=== PATIENT | female | born 1935 | race Caucasian/White ===

== ENCOUNTER 2023-09-13 18:35 | Emergency (ER) | payer MEDICARE ==
[~2023-09-13] VITALS: Ht 157.5 cm; Wt 514.8 kg
[2023-09-13 19:09] LABS: BASOPHILS % 0.3 % (0.0-1.0); EOSINOPHILS % 0.1 % (0.0-6.0); HEMATOCRIT 37.8 % (34.2-44.1); HEMOGLOBIN 12.7 g/dL (12.0-16.0); LYMPHOCYTES # (AUTO) 0.9 (1.0-3.2); LYMPHOCYTES % 9.5 % (18.0-39.1); MEAN CORPUSCULAR HGB CONC 33.6 g/dL (31-35); MEAN CORPUSCULAR VOLUME 89.2 fL (81-99); MONOCYTES # (AUTO) 0.7 (0.2-0.8); MONOCYTES % 7.4 % (4.4-11.3); NEUTROPHILS # (AUTO) 7.4 (2.1-6.9); NEUTROPHILS % 82.3 % (38.7-80.0); PLATELET COUNT 335 x10e3/uL (140-360); RED BLOOD COUNT 4.24 x10e6/uL (3.6-5.1); RED CELL DISTRIBUTION WIDTH 13.2 % (11.7-14.4); WHITE BLOOD COUNT 9.02 x10e3/uL (4.8-10.8)
[2023-09-13 19:22] LABS: ALBUMIN 3.2 g/dL (3.5-5.0); ALBUMIN/GLOBULIN RATIO 0.7 (0.8-2.0); ANION GAP 17.3 mmol/L (8-16); CALCIUM 9.3 mg/dL (8.4-10.2); CREATININE, SERUM 0.9 mg/dL (0.57-1.11); POTASSIUM 4.3 mmol/L (3.5-5.1)
[2023-09-13 21:01] VITALS: BP 162/81; PULSE 93; RESP 16; TEMP 98.8; O2SAT 100
== END 2023-09-13 20:55 | disposition home or self-care (01) ==
LOC: ER 18:43
DX: R05.9 Cough, unspecified (principal); R09.81 Nasal congestion; Z20.822 Contact with and (suspected) exposure to COVID-19; R94.31 Abnormal electrocardiogram [ECG] [EKG]
CPT/HCPCS: 36415; 71045; 80053; 83880; 84484; 85025; 87400; 93005; 99284; U0002

== ENCOUNTER 2024-11-20 18:18 | Emergency (ER) | payer MEDICARE ==
[~2024-11-20] VITALS: Ht 157.5 cm; Wt 514.8 kg
[2024-11-20 18:32] VITALS: TEMP 98.5
[2024-11-20] MEDS: SODIUM CHLORIDE 0.9% 1000ML 1,000 ML IV STA (18:48)
[2024-11-20 19:08] LABS: BASOPHILS % 0.3 % (0.0-1.0); HEMATOCRIT 38.2 % (34.2-44.1); HEMOGLOBIN 12.9 g/dL (12.0-16.0); LYMPHOCYTES # (AUTO) 0.7 (1.0-3.2); LYMPHOCYTES % 7.6 % (18.0-39.1); MEAN CORPUSCULAR HGB CONC 33.8 g/dL (31-35); MEAN CORPUSCULAR VOLUME 91.8 fL (81-99); MONOCYTES # (AUTO) 0.3 (0.2-0.8); MONOCYTES % 3.5 % (4.4-11.3); NEUTROPHILS # (AUTO) 8.1 (2.1-6.9); NEUTROPHILS % 88.1 % (38.7-80.0); PLATELET COUNT 228 x10e3/uL (140-360); RED BLOOD COUNT 4.16 x10e6/uL (3.6-5.1); RED CELL DISTRIBUTION WIDTH 12.8 % (11.7-14.4); WHITE BLOOD COUNT 9.19 x10e3/uL (4.8-10.8)
[2024-11-20 19:34] LABS: ALBUMIN 3.8 g/dL (3.5-5.0); ALBUMIN/GLOBULIN RATIO 1.1 (0.8-2.0); ANION GAP 18.3 mmol/L (8-16); BILIRUBIN,TOTAL 0.9 mg/dL (0.2-1.2); CALCIUM 9.1 mg/dL (8.4-10.2); CREATININE, SERUM 0.94 mg/dL (0.57-1.11); POTASSIUM 4.3 mmol/L (3.5-5.1); TOTAL PROTEIN 7.2 g/dL (6.5-8.1)
[2024-11-20 19:40] LABS: TROPONIN I 0.013 ng/mL (0-0.300)
[2024-11-20 19:56] LABS: CLARITY,URINE CLEAR (CLEAR); COLOR,URINE YELLOW (YELLOW); LEUKOCYTE ESTERASE ,URINE NEGATIVE (NEGATIVE); NITRITE,URINE NEGATIVE (NEGATIVE); PH,URINE 8 (5 - 7); PROTEIN,URINE DIPSTICK 2+ (NEGATIVE)
[2024-11-20 19:57] LABS: BILIRUBIN,URINE NEGATIVE (NEGATIVE); GLUCOSE, URINE NEGATIVE (NEGATIVE); KETONES,URINE 2+ (NEGATIVE); URINE UROBILINOGEN 0.2 mg/dL (0.2 - 1)
[2024-11-20 19:58] LABS: BACTERIA,URINE RARE /HPF; EPITHELIAL CELLS,URINE FEW /LPF; WBC,URINE (MAN) 0-5 /HPF (0-5)
[2024-11-20 20:00] VITALS: PULSE 88; RESP 17
[2024-11-20] MEDS ORDERED: CEPHALEXIN500 MG PO (20:40)
[2024-11-20] MEDS: ACETAMINOPHEN 325 MG TAB PO STA (20:51)
[2024-11-20 21:00] VITALS: BP 163/96; PULSE 87; RESP 20; TEMP 98.6; O2SAT 100
== END 2024-11-20 20:56 | disposition home or self-care (01) ==
LOC: ER 18:28
DX: R41.0 Disorientation, unspecified (principal); R51.9 Headache, unspecified; R53.1 Weakness; R53.81 Other malaise
CPT/HCPCS: 36415; 70450; 71045; 80053; 81001; 82550; 83880; 84484; 85025; 93005; 99285; J7030

== ENCOUNTER 2025-01-17 22:27 | Inpatient (IN) | payer MEDICARE ==
[~2025-01-17] VITALS: Ht 157.5 cm; Wt 68.0 kg
[~2025-01-17 22:27] MED LIST: CEPHALEXIN500 MG PO
[2025-01-17 22:40] VITALS: RESP 20; TEMP 98.4
[2025-01-17 23:21] LABS: BASOPHILS # (AUTO) 0.1 (0.0-0.1); BASOPHILS % 0.4 % (0.0-1.0); HEMATOCRIT 43.6 % (34.2-44.1); HEMOGLOBIN 14.9 g/dL (12.0-16.0); LYMPHOCYTES # (AUTO) 0.7 (1.0-3.2); LYMPHOCYTES % 5.1 % (18.0-39.1); MEAN CORPUSCULAR HEMOGLOBIN 30.7 pg (28-32); MEAN CORPUSCULAR HGB CONC 34.2 g/dL (31-35); MEAN CORPUSCULAR VOLUME 89.7 fL (81-99); MONOCYTES % 7.2 % (4.4-11.3); NEUTROPHILS # (AUTO) 12.1 (2.1-6.9); NEUTROPHILS % 86.4 % (38.7-80.0); PLATELET COUNT 361 x10e3/uL (140-360); RED BLOOD COUNT 4.86 x10e6/uL (3.6-5.1); RED CELL DISTRIBUTION WIDTH 13.2 % (11.7-14.4)
[2025-01-17] MEDS: MAGNESIUM SULFATE 2GM/50ML 50 ML IV ONE (23:24)
[2025-01-17] MEDS: SODIUM CHLORIDE 0.9% 1000ML 1,000 ML IV ONE ×2 (23:24)
[2025-01-17 23:35] LABS: ALBUMIN 4.6 g/dL (3.5-5.0); ALBUMIN/GLOBULIN RATIO 1.1 (0.8-2.0); ANION GAP 22.9 mmol/L (8-16); BILIRUBIN,TOTAL 1.4 mg/dL (0.2-1.2); CALCIUM 10.3 mg/dL (8.4-10.2); CREATININE, SERUM 1.56 mg/dL (0.57-1.11); POTASSIUM 3.9 mmol/L (3.5-5.1); TOTAL PROTEIN 8.7 g/dL (6.5-8.1)
[2025-01-17 23:42] LABS: BACTERIA,URINE MANY /HPF; BILIRUBIN,URINE 1+ (NEGATIVE); CLARITY,URINE CLOUDY (CLEAR); COLOR,URINE YELLOW (YELLOW); EPITHELIAL CELLS,URINE MANY /LPF; GLUCOSE, URINE NEGATIVE (NEGATIVE); KETONES,URINE 2+ (NEGATIVE); LEUKOCYTE ESTERASE ,URINE NEGATIVE (NEGATIVE); NITRITE,URINE NEGATIVE (NEGATIVE); PH,URINE 5.5 (5 - 7); PROTEIN,URINE DIPSTICK >=300 (NEGATIVE); RBC,URINE 21-50 /HPF (0-5); TRANSITIONAL EPI CELLS,URINE FEW; URINE UROBILINOGEN 0.2 mg/dL (0.2 - 1)
[2025-01-17 23:43] LABS: AMORPHOUS SEDIMENT,URINE MODERATE
[2025-01-17 23:47] LABS: CORONAVIRUS COVID-19 AG NEGATIVE (NEGATIVE); INFLUENZA A AG NEGATIVE (NEGATIVE); INFLUENZA B AG NEGATIVE (NEGATIVE)
[2025-01-17 23:55] LABS: INR 1.01; PROTHROMBIN TIME 13.9 seconds (11.9-14.5)
[2025-01-17 23:56] LABS: PARTIAL THROMBOPLASTIN TIME 27.2 seconds (23.8-35.5)
[2025-01-18] VITALS (7 sets, daily range): BP systolic 108–163; BP diastolic 63–76; PULSE 92–111; RESP 17–19; TEMP 97.6–98.6; O2SAT 97–99
[2025-01-18] MEDS ORDERED: SODIUM CHLORIDE FLUSH 10 ML SYR INJ PRN (02:15)
[2025-01-18] MEDS ORDERED: ONDANSETRON HCL INJ 2MG/ML 2ML 2 MG/ML VIAL IV PRN (02:15)
[2025-01-18] MEDS: SODIUM CHLORIDE 0.9% 1000ML 1,000 ML IV SCH (05:33)
[2025-01-18] MEDS ORDERED: LEVALBUTEROL TA15 GM INH (12:26)
[2025-01-18] MEDS ORDERED: LOPRESSOR25 MG PO (12:26)
[2025-01-18] MEDS ORDERED: HYDROCODON-ACE1 EAC9 PO (12:44)
[2025-01-18] MEDS ORDERED: CITALOPRAM HBR40 MG PO (12:44)
[2025-01-18] MEDS ORDERED: LEVOTHYROXINE50 MCG PO (12:44)
[2025-01-18] MEDS ORDERED: BENZONATATE 100 MG CAP PO PRN (14:30)
[2025-01-18] MEDS ORDERED: SIMETHICONE 80 MG CHEW PO PRN (14:30)
[2025-01-18] MEDS ORDERED: HYDRALAZINE HCL 20 MG/ML VIAL IV PRN (14:30)
[2025-01-18] MEDS ORDERED: LIDOCAINE 4% PATCH TP PRN (14:30)
[2025-01-18] MEDS ORDERED: DIPHENHYDRAMINE HCL 25 MG CAP PO PRN (14:30)
[2025-01-18] MEDS ORDERED: DEXTROSE 50% SYRINGE 50 ML IV PRN (14:30)
[2025-01-18] MEDS: ENOXAPARIN SOD INJ 40 MG/0.4 ML SYR SC SCH (16:27)
[2025-01-19] VITALS (9 sets, daily range): BP systolic 119–154; BP diastolic 62–88; PULSE 71–99; RESP 18–20; TEMP 97.3–98.2; O2SAT 96–100
[2025-01-19] MEDS: LEVOTHYROXINE SODIUM 50 MCG TAB PO SCH (04:38)
[2025-01-19 06:35] LABS: BASOPHILS # (AUTO) 0.1 (0.0-0.1); BASOPHILS % 0.6 % (0.0-1.0); EOSINOPHILS % 0.2 % (0.0-6.0); HEMATOCRIT 35.9 % (34.2-44.1); LYMPHOCYTES # (AUTO) 1.1 (1.0-3.2); LYMPHOCYTES % 13.5 % (18.0-39.1); MEAN CORPUSCULAR HEMOGLOBIN 30.2 pg (28-32); MEAN CORPUSCULAR HGB CONC 33.4 g/dL (31-35); MEAN CORPUSCULAR VOLUME 90.4 fL (81-99); MONOCYTES # (AUTO) 0.8 (0.2-0.8); MONOCYTES % 9.3 % (4.4-11.3); NEUTROPHILS # (AUTO) 6.4 (2.1-6.9); PLATELET COUNT 242 x10e3/uL (140-360); RED BLOOD COUNT 3.97 x10e6/uL (3.6-5.1); RED CELL DISTRIBUTION WIDTH 13.2 % (11.7-14.4); WHITE BLOOD COUNT 8.36 x10e3/uL (4.8-10.8)
[2025-01-19 07:03] LABS: ALBUMIN 3.3 g/dL (3.5-5.0); ALBUMIN/GLOBULIN RATIO 1.2 (0.8-2.0); ANION GAP 14.1 mmol/L (8-16); BILIRUBIN,TOTAL 0.6 mg/dL (0.2-1.2); CREATININE, SERUM 0.86 mg/dL (0.57-1.11); TOTAL PROTEIN 6.1 g/dL (6.5-8.1)
[2025-01-19 07:05] LABS: POTASSIUM 3.1 mmol/L (3.5-5.1)
[2025-01-19] MEDS: CITALOPRAM HYDROBROMIDE 20 MG TAB PO SCH (07:44)
[2025-01-19] MEDS: POTASSIUM CHLORIDE 20 MEQ TAB CR PO PRN (07:44)
[2025-01-19] MEDS: PANTOPRAZOLE SOD 40 MG TABEC PO SCH (07:44)
[2025-01-19] MEDS: ACETAMINOPHEN 325 MG TAB PO PRN (15:36)
[2025-01-19] MEDS: ALBUTEROL/IPRATROPIUM 3 ML NEB NEB PRN (15:49)
[2025-01-19] MEDS: MELATONIN 5 MG TABLET PO PRN (23:05)
[2025-01-20] VITALS (9 sets, daily range): BP systolic 142–196; BP diastolic 89–98; PULSE 74–109; RESP 18–20; TEMP 97.5–98.8; O2SAT 95–98
[2025-01-20] MEDS: DOCUSATE SODIUM 100 MG CAP PO PRN (09:57)
[2025-01-20] MEDS: METOPROLOL TARTRATE 25 MG TAB PO SCH (16:09)
[2025-01-20] MEDS: LOSARTAN POTASSIUM 100 MG TAB PO SCH (18:14)
[2025-01-21 08:00] VITALS: BP 127/83; PULSE 92; RESP 18; TEMP 98.2; O2SAT 100
[2025-01-21 08:06] VITALS: PULSE 90; RESP 20; O2SAT 93
[2025-01-21 11:56] VITALS: BP 158/111; PULSE 77; RESP 16; TEMP 99; O2SAT 96
[2025-01-21] MEDS ORDERED: CEFDINIR300 MG PO (13:56)
[2025-01-21] MEDS ORDERED: COZAAR100 MG PO (13:56)
[2025-01-21 16:30] VITALS: BP 165/84; PULSE 84; RESP 18; TEMP 98.7; O2SAT 99
[2025-01-21 17:45] VITALS: BP 165/84; PULSE 84
== END 2025-01-21 18:40 | disposition home health service (06) | DRG 640 ==
LOC: ER 22:34 → ERHOLD 01-18 02:04 → MED/SURG3 01-18 02:54 → OBSVTOIN 01-19 15:01
PROVIDERS: ADMIT Internal Medicine; ATTEND Internal Medicine
DX: E86.0 Dehydration (principal); G93.41 Metabolic encephalopathy; E44.0 Moderate protein-calorie malnutrition; N17.9 Acute kidney failure, unspecified; Z99.81 Dependence on supplemental oxygen; I10 Essential (primary) hypertension; E03.9 Hypothyroidism, unspecified; J44.9 Chronic obstructive pulmonary disease, unspecified; F03.90 Unspecified dementia, unspecified severity, without behavioral disturbance, psychotic disturbance, mood disturbance, and anxiety; Z11.52 Encounter for screening for COVID-19; Z68.27 Body mass index [BMI] 27.0-27.9, adult; Z79.890 Hormone replacement therapy; Z90.49 Acquired absence of other specified parts of digestive tract; Z90.710 Acquired absence of both cervix and uterus; Z82.49 Family history of ischemic heart disease and other diseases of the circulatory system
CPT/HCPCS: 36415; 70450; 80053; 81001; 83605; 83880; 84443; 84484; 85025; 85610; 85730; 87040; 87086; 93005; 94640; 94799; 99252; 99284; G0378; J0696; J1650; J2470; J3475; J7030